=== PATIENT | male | born 1985 | race Caucasian/White ===

== ENCOUNTER → 2016-09-06 10:52 | Outpatient (CLI) | payer MEDICARE, MEDICAID ==
[2016-09-06 12:23] LABS: BASOPHILS 0.5 % (0.0-2.0); HEMATOCRIT 47.6 % (42.0-54.0); HEMOGLOBIN 16.4 g/dL (13.5-17.5); IMMATURE GRANULOCYTES 0.5 % (0-5); LYMPHOCYTES 41.1 % (15-50); MCH 31.2 pg (26.0-34.0); MCHC 34.5 g/dL (31.0-37.0); MCV 90.5 fL (80.0-100.0); MEAN PLATELET VOLUME 9.8 fL (7.4-10.4); MONOCYTES 9.5 % (2-11); NEUTROPHILS 45.4 % (40-80); PLATELET COUNT 285 10x3/uL (130-400); RBC 5.26 10x6/uL (4.20-6.10); RDW 12.2 % (11.5-14.5); WBC 8.5 10x3/uL (4.8-10.8)
[2016-09-06 12:35] LABS: APTT 22.3 SECONDS (22.8-39.4); INR 0.99 (0.85-1.17); PROTIME 12.9 SECONDS (11.6-15.0)
[2016-09-06 13:14] LABS: ALBUMIN 4.9 g/dL (3.4-5.0); ALKALINE PHOSPHATASE 57 U/L (46-116); ALT (SGPT) 628 U/L (10-68); BILIRUBIN - DIRECT 0.25 mg/dL (0.00-0.30); BILIRUBIN - INDIRECT 0.55 mg/dL (0.00-1.00); CALC OSMOLALITY 273 mosm/kg (275-300); CALCIUM 10.3 mg/dL (8.5-10.1); CARBON DIOXIDE 26.3 mmol/L (21.0-32.0); CHLORIDE - SERUM 97 mmol/L (98-107); CHOL - HDL RATIO 5.9 ratio (2.3-4.9); CHOLESTEROL, TOTAL 270 mg/dL (0-200); FERRITIN 2159 ng/mL (3-244); GAMMA GT 551 U/L (5-85); GLUCOSE 117 mg/dL (74-106); HDL CHOLESTEROL 46 mg/dL (32-96); LDL CHOLESTEROL 172 mg/dL (0-100); LDL-HDL RATIO 3.7 ratio (1.5-3.5); POTASSIUM - SERUM 3.8 mmol/L (3.5-5.1); PROTEIN - SERUM 8.3 g/dL (6.4-8.2); SODIUM 136 mmol/L (136-145); TRIGLYCERIDE 260 mg/dL (30-200); UREA NITROGEN 14 mg/dL (7-18); eGFR NON AFRICAN AMERICAN > 90 mL/min (90-120)
[2016-09-06 13:22] LABS: IRON 143 ug/dl (35-150)
[2016-09-06 13:23] LABS: % SATURATION 34 % (15-55); TOTAL IRON BIND CAPACITY 416 ug/dl (260-445); UNSAT IRON BIND CAPACITY 273 ug/dl (150-375)
[2016-09-07 09:17] LABS: FOLATE (FOLIC ACID) - SERUM >20.0 ng/mL (>3.0); HAPTOGLOBIN 167 mg/dL (34-200); HEPATITIS C ANTIBODY <0.1 (0.0-0.9)
[2016-09-07 10:19] LABS: ANA REFLEX - DIRECT Negative (Negative)
[2016-09-09 12:08] LABS: MITOCHONDRIAL ANTIBODY 3.4 Units (0.0-20.0); SMOOTH MUSCLE ABS (ACTIN) 9 Units (0-19)
== END | disposition home or self-care (01) ==
LOC: D.LAB 10:52
PROVIDERS: Internal Medicine Gastroenterology
DX: R74.8 Abnormal levels of other serum enzymes (principal); K76.0 Fatty (change of) liver, not elsewhere classified

== ENCOUNTER → 2016-09-14 10:45 | Outpatient (CLI) | payer MEDICARE ==
[2016-09-14 11:27] LABS: UDS - AMPHET NEGATIVE QUAL (NEGATIVE); UDS - BARB NEGATIVE QUAL (NEGATIVE); UDS - BENZO NEGATIVE QUAL (NEGATIVE); UDS - COCAINE NEGATIVE QUAL (NEGATIVE); UDS - METH NEGATIVE QUAL (NEGATIVE); UDS - OPIATE NEGATIVE QUAL (NEGATIVE); UDS - PCP NEGATIVE QUAL (NEGATIVE); UDS - THC NEGATIVE QUAL (NEGATIVE)
[2016-09-14 11:32] LABS: ALBUMIN 4.6 g/dL (3.4-5.0); BILIRUBIN - DIRECT 0.18 mg/dL (0.00-0.30); BILIRUBIN - INDIRECT 0.57 mg/dL (0.00-1.00); BILIRUBIN - TOTAL 0.75 mg/dL (0.2-1.3); PROTEIN - SERUM 8.5 g/dL (6.4-8.2)
== END | disposition home or self-care (01) ==
LOC: D.LAB 10:30 → D.CT 11:00
PROVIDERS: Internal Medicine Gastroenterology
DX: K76.0 Fatty (change of) liver, not elsewhere classified (principal); R10.9 Unspecified abdominal pain; F17.200 Nicotine dependence, unspecified, uncomplicated; R11.0 Nausea; R79.89 Other specified abnormal findings of blood chemistry

== ENCOUNTER → 2016-11-05 14:26 | Outpatient (CLI) | payer OTHER | END | disposition home or self-care (01) | LOC: D.RAD 09:15 | DX: Z02.71 Encounter for disability determination (principal) ==